=== PATIENT | male | born 2000 | race Two or more races ===

== ENCOUNTER 2023-09-14 18:02 | Emergency (ER) | payer BC, OTHER ==
[~2023-09-14] VITALS: Ht 182.9 cm; Wt 76.6 kg
[2023-09-14] MEDS ORDERED: ACET500T58 PO (23:48)
[2023-09-15 08:12] VITALS: BP 128/56; PULSE 82; RESP 16; TEMP 97.9; O2SAT 96
== END 2023-09-14 23:48 | disposition home or self-care (01) ==
LOC: ER 18:02
DX: S40.811A Abrasion of right upper arm, initial encounter (principal); S80.812A Abrasion, left lower leg, initial encounter; M54.2 Cervicalgia; R04.0 Epistaxis; Z79.899 Other long term (current) drug therapy; V43.52XA Car driver injured in collision with other type car in traffic accident, initial encounter; Y93.I9 Activity, other involving external motion; Y92.89 Other specified places as the place of occurrence of the external cause; Y99.8 Other external cause status